=== PATIENT | female | born 1995 | race Hispanic/Latino ===

== ENCOUNTER 2018-07-05 21:04 | Emergency (ER) | payer SELFPAY ==
[2018-07-05 21:46] LABS: Urine Blood NEGATIVE (NEG); Urine Glucose NEGATIVE (NEG); Urine Protein NEGATIVE (NEG); Urine pH 6.5 (5.0-7.0)
[2018-07-05 21:46] LABS: Urine Bacteria <20 /HPF (<20); Urine Culture Reflex Order NOT NEEDED; Urine Mucus 2+ /HPF (NONE SEEN); Urine RBC <5 /HPF (NONE SEEN)
[2018-07-05 21:48] LABS: Absolute Monocytes 0.5 K/uL (0.1-1.3); Absolute Neutrophil 4.9 K/uL (1.8-8.0); Basophils % 0.3 % (0-1.3); Hematocrit 42.2 % (36.0-45.0); Lymphocytes % 26.8 % (15.3-44.8); MPV 9.1 fL (7.6-11.3); Monocytes % 6.6 % (3.3-12.3); RBC Red Blood Cell Count 4.82 M/uL (3.86-4.86)
[2018-07-05] MEDS ORDERED: NA CHLORIDE 0.9% 1,000 ML ONE (21:48)
[2018-07-05 22:02] LABS: ALT/SGPT 21 U/L (12-78); AST/SGOT 19 U/L (15-37); Albumin 4.2 g/dL (3.4-5.0); Alkaline Phosphatase 76 U/L (45-117); BUN Blood Urea Nitrogen 16 mg/dL (7-18); Bicarbonate 27 mmol/L (21-32); Bilirubin Direct 0.1 mg/dL (0-0.2); Bilirubin Total 0.5 mg/dL (0.2-1.0); Creatine Phosphokinase 124 U/L (26-192); Glucose Level 69 mg/dL (74-106); Lipase 184 U/L (73-393); Potassium 3.9 mmol/L (3.5-5.1); Protein, Total 7.8 g/dL (6.4-8.2); Sodium Level 140 mmol/L (136-145)
[2018-07-05] MEDS ORDERED: D50W 25 GM/50 ML SYRINGE IV ONE ×2 (22:32→23:53)
--- NOTE | 2018-07-06 01:38 | EDPHYS ---
Physician Documentation [facility] Name: Zofia Niño Age: 23 yrs Sex: Female : 1995 Arrival Date: 07/05/2018 Time: 21:08 Bed 17 Private MD: ED Physician Rodrigo Woods HPI: 07/06 00:06 This 23 yrs old Female presents to ER via Ambulatory with complaints of snw Shortness Of Breath. 00:06 The patient has shortness of breath while exercising, while talking. Onset: The snw symptoms/episode began/occurred suddenly, 3 day(s) ago, and became persistent. Duration: The symptoms are intermittent. The patient's shortness of breath is aggravated by exertion, talking. Severity of symptoms: At their worst the symptoms were moderate in the emergency department the symptoms are unchanged. possibly during previous pregnancies. The patient has not recently seen a physician. LMP 05/21/18, , denies complications in previous pregnancies, denies swelling in lower extremities.. 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 - Social history:: Smoking status: Patient/guardian denies using tobacco. - Ebola Screening: : No symptoms or risks identified at this time. ROS: 07/06 00:04 Eyes: Negative for injury, pain, redness, and discharge, ENT: Negative for injury, snw pain, and discharge, Neck: Negative for injury, pain, and swelling, Cardiovascular: Negative for chest pain, palpitations, and edema, Respiratory: Negative for cough, wheezing, and pleuritic chest pain, + shortness of breath Back: Negative for injury and pain, : Negative for injury, bleeding, discharge, and swelling, MS/Extremity: Negative for injury and deformity, Skin: Negative for injury, rash, and discoloration, Neuro: Negative for headache, weakness, numbness, tingling, and seizure, Psych: Negative for depression, anxiety, suicide ideation, homicidal ideation, and hallucinations. Constitutional: Positive for feeling short of breath on speaking, went to gym and was winded, began abd workout and c/o pain in lower abdomen.. Abdomen/GI: Positive for abdominal pain. Exam: 00:04 Head/Face: Normocephalic, atraumatic. Eyes: Pupils equal round and reactive to light, snw extra-ocular motions intact. Lids and lashes normal. Conjunctiva and sclera are non-icteric and not injected. Cornea within normal limits. Periorbital areas with no swelling, redness, or edema. ENT: Nares patent. No nasal discharge, no septal abnormalities noted. Tympanic membranes are normal and external auditory canals are clear. Oropharynx with no redness, swelling, or masses, exudates, or evidence of obstruction, uvula midline. Mucous membranes moist. Neck: Trachea midline, no thyromegaly or masses palpated, and no cervical lymphadenopathy. Supple, full range of motion without nuchal rigidity, or vertebral point tenderness. No Meningismus. Chest/axilla: Normal chest wall appearance and motion. Nontender with no deformity. No lesions are appreciated. 00:04 Respiratory: Lungs have equal breath sounds bilaterally, clear to auscultation and percussion. No rales, rhonchi or wheezes noted. No increased work of breathing, no retractions or nasal flaring. Abdomen/GI: Soft, non-tender, with normal bowel sounds. No distension or tympany. No guarding or rebound. No evidence of tenderness throughout. Back: No spinal tenderness. No costovertebral tenderness. Full range of motion. Skin: Warm, dry with normal turgor. Normal color with no rashes, no lesions, and no evidence of cellulitis. MS/ Extremity: Pulses equal, no cyanosis. Neurovascular intact. Full, normal range of motion. Neuro: Awake and alert, GCS 15, oriented to person, place, time, and situation. Cranial nerves II-XII grossly intact. Motor strength 5/5 in all extremities. Sensory grossly intact. Cerebellar exam normal. Normal gait. Psych: Awake, alert, with orientation to person, place and time. Behavior, mood, and affect are within normal limits. 00:04 Constitutional: The patient appears alert, awake, anxious. 00:04 Cardiovascular: Rate: tachycardic, Rhythm: regular. Vital Signs: 07/05 21:18 BP 119 / 83; Pulse 106; Resp 16; Temp 98.4; Pulse Ox 100% on R/A; Weight 64.41 kg; lp1 Height 5 ft. 3 in. (160.02 cm); Pain 4/10; 21:45 BP 116 / 76; Pulse 95; Resp 17; Pulse Ox 98% ; Pain 0/10; rr5 22:45 BP 107 / 75; Pulse 90; Resp 16; Pulse Ox 98% ; rr5 23:35 BP 104 / 70; Pulse 85; Resp 17; Pulse Ox 98% ; rr5 07/06 00:45 BP 104 / 68; Pulse 80; Resp 17; Pulse Ox 98% ; rr5 01:27 BP 101 / 64; Pulse 81; Resp 16; Pulse Ox 99% ; rr5 01:50 BP 107 / 62; Pulse 75; Resp 17; Pulse Ox 98% ; rr5 07/05 21:18 Body Mass Index 25.15 (64.41 kg, 160.02 cm) lp1 MDM: 07/05 21:58 Patient medically screened. w 07/06 00:03 Data reviewed: vital signs, nurses notes. Counseling: I had a detailed discussion with snw the patient and/or guardian regarding: the historical points, exam findings, and any diagnostic results supporting the discharge/admit diagnosis, lab results, radiology results, the need for further work-up and treatment in the hospital. Physician consultation: Pilar Shepherd MD was called at 00:03, regarding admission, [phone]. 00:40 Physician consultation: Pilar Shepherd MD was called at 00:26, regarding admission, to the [facility] telemetry unit. left message on machine [phone]. 01:10 Physician consultation: Pilar Shepherd MD was called at 01:11, regarding admission, to the [facility] telemetry unit. Message left on machine [phone]. 01:25 Special discussion: Based on the history and exam findings, there is no indication for snw further emergent testing or inpatient evaluation. I discussed with the patient/guardian the need to see the OB Gyne specialist for further evaluation of the symptoms. ED course: Encouraged pt to accept transfer to [facility] where her employment legal assistant is on staff. Pt states she is feeling better, denies shortness of breath or any pain at this time. Pt wants to go home tonight and make an appt with Dr. Aguirre for tomorrow. FSBS 111mg/dl. Attending MD notified of pt's decision.. 07/05 21:20 Order name: Basic Metabolic Panel; Complete Time: 22:07 snw 07/05 21:20 Order name: CBC with Diff; Complete Time: 21:58 snw 07/05 21:20 Order name: Hepatic Function; Complete Time: 22:07 snw 07/05 21:20 Order name: Lipase; Complete Time: 22:07 snw 07/05 21:20 Order name: CPK; Complete Time: 22:07 snw 07/05 21:20 Order name: DD; Complete Time: 21:58 snw 07/05 21:20 Order name: Urine Culture w 07/05 21:20 Order name: Urine Microscopic Only; Complete Time: 21:46 snw 07/05 21:34 Order name: Urine Dipstick--Ancillary (enter results); Complete Time: 21:46 wy07/05 21:34 Order name: Urine --Ancillary (enter results); Complete Time: 21:46 wy07/05 21:59 Order name: Quantitative Hcg; Complete Time: 23:02 snw 07/05 21:59 Order name: Abo/rh Typing; Complete Time: 23:32 snw 07/05 22:30 Order name: TRANSVAG OB EDMS 07/05 21:20 Order name: Labs collected and sent; Complete Time: 21:44 snw 07/05 21:20 Order name: Urine Test (obtain specimen); Complete Time: 21:44 w 07/05 21:20 Order name: Urine Dipstick-Ancillary (obtain specimen); Complete Time: 21:44 w 07/05 21:59 Order name: NPO; Complete Time: 22:39 snw Administered Medications: 07/05 21:40 Drug: NS 0.9% 1000 ml Route: IV; Rate: 1 bolus; Site: right antecubital; rr5 22:40 Drug: D50W 50 ml Route: IVP; Site: right antecubital; rr5 07/06 01:50 Follow up: Response: No adverse reaction rr5 07/05 23:35 Drug: D50W 50 ml Route: IVP; Site: right antecubital; rr5 07/06 01:50 Follow up: Response: No adverse reaction rr5 Point of Care Testing: Blood Glucose: 07/05 23:35 Blood Glucose: 51 mg/dL; rr5 07/06 00:45 Blood Glucose: 88 mg/dL; rr5 01:27 Blood Glucose: 111 mg/dL; rr5 07/05 23:35 ED provider aware with order made rr5 Ranges: Critical Glucose Levels:Adult <50 mg/dl or >400 mg/dl <40 mg/dl or >180 mg/dl Disposition: 07/06 03:12 Co-signature as Attending Physician, Rodrigo Woods MD. rn Disposition: 07/06/18 01:37 Patient has left against medical advice. Impression: Dyspnea, unspecified, state, Hypoglycemia, unspecified, Elevated D-dimer. - Patients states they are going to Home. - Condition is Stable. - Discharge Instructions: Hypoglycemia, Shortness of Breath, Blood Glucose Monitoring, Adult, First Trimester of . Follow up: Private Physician; When: Tomorrow; Reason: Recheck today's complaints, Continuance of care, Re-evaluation by your physician. Follow up: Emergency Department; When: As needed; Reason: Worsening of condition. - Problem is new. - Symptoms have improved. Signatures: Dispatcher [employer] [facility] Katuiska Roy, PLATER PRODUCTION-C PLATER PRODUCTION-Csnw Rodrigo Woods MD MD rn Pena, Laura, RN RN lp1 Ok Zee, RN RN rr5 Corrections: (The following items were deleted from the chart) 07/05 22:30 22:00 Transvaginal Study (Probe)+[id number].RAD.[email or web address] ordered. [facility] 07/06 01:14 00:03 Physician consultation: Pilar Shepherd MD was called at 00:03, regarding admission, snw snw 01:14 00:40 Physician consultation: Pilar Shepherd MD was called at 00:26, regarding admission, snw to the telemetry unit. left message on machine, snw 01:56 01:37 07/06/2018 01:37 Patients has left against medical advice. Impression: Dyspnea, rr5 unspecified; state; Hypoglycemia, unspecified; Elevated D-dimer. Patient states they are going to Home. Condition is Stable. Follow up: Private Physician; When: Tomorrow; Reason: Recheck today's complaints, Continuance of care, Re-evaluation by your physician. Follow up: Emergency Department; When: As needed; Reason: Worsening of condition. Problem is new. Symptoms have improved. snw
--- NOTE | 2018-07-06 01:38 | ER ---
Nurse's Notes [facility] Name: Zofia Niño Age: 23 yrs Sex: Female : 1995 Arrival Date: 07/05/2018 Time: 21:08 Bed 17 Private MD: Diagnosis: Dyspnea, unspecified; state;Hypoglycemia, unspecified;Elevated D-dimer Presentation: 07/05 21:16 Presenting complaint: Patient states: "when I was at the gym, I did regular routine, lp1 but I got real short of breath and when I was doing an ab workout, I twisted and felt something pop and it's been sore since then"; States pain on same movement; States feeling short of breath. Transition of care: patient was not received from another setting of care. Onset of symptoms was July 05, 2018 at 15:00. Risk Assessment: Do you want to hurt yourself or someone else? Patient reports no desire to harm self or others. Initial Sepsis Screen: Does the patient meet any 2 criteria? No. Patient's initial sepsis screen is negative. Does the patient have a suspected source of infection? No. Patient's initial sepsis screen is negative. Care prior to arrival: None. 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 - Social history:: Smoking status: Patient/guardian denies using tobacco. - Ebola Screening: : No symptoms or risks identified at this time. Screenin:19 Abuse screen: Denies threats or abuse. Denies injuries from another. Nutritional lp1 screening: No deficits noted. Tuberculosis screening: No symptoms or risk factors identified. Fall Risk None identified. Assessment: 21:45 General: Appears in no apparent distress. comfortable, Behavior is calm, cooperative, rr5 appropriate for age. Pain: Denies pain. Neuro: Level of Consciousness is awake, alert, obeys commands, Oriented to person, place, time, situation, Appropriate for age. Cardiovascular: Capillary refill < 3 seconds Patient's skin is warm and dry. Respiratory: Reports shortness of breath Airway is patent Respiratory effort is even, unlabored, Respiratory pattern is regular, symmetrical. GI: Abdomen is flat, Reports lower abdominal pain. : No signs and/or symptoms were reported regarding the genitourinary system. EENT: No signs and/or symptoms were reported regarding the EENT system. Derm: Skin is intact, Skin temperature is warm. Musculoskeletal: Capillary refill < 3 seconds, Range of motion: intact in all extremities. 22:50 Reassessment: Patient appears in no apparent distress at this time. Patient is alert, rr5 oriented x 3, equal unlabored respirations, skin warm/dry/pink. awaiting for results. Patient states feeling better. Patient states symptoms have improved. 23:35 Reassessment: Patient appears in no apparent distress at this time. complaints of mild rr5 dizziness and sweating. CBG rechecked 51mg/dl. Ed provider aware with order and carried out. 23:40 Reassessment: given juice and sandwich. Dextrose 50ml given as stat dose. rr5 07/06 00:30 Reassessment: Patient appears in no apparent distress at this time. Patient is alert, rr5 oriented x 3, equal unlabored respirations, skin warm/dry/pink. AMA from signed. discharge instruction given and explained without complaints made. 00:45 Reassessment: CBG 88mg/dl rechecked, given soda. rr5 01:50 Reassessment: Patient appears in no apparent distress at this time. Patient is alert, rr5 oriented x 3, equal unlabored respirations, skin warm/dry/pink. awaiting for results and review. no complaints made. Vital Signs: 07/05 21:18 BP 119 / 83; Pulse 106; Resp 16; Temp 98.4; Pulse Ox 100% on R/A; Weight 64.41 kg; lp1 Height 5 ft. 3 in. (160.02 cm); Pain 4/10; 21:45 BP 116 / 76; Pulse 95; Resp 17; Pulse Ox 98% ; Pain 0/10; rr5 22:45 BP 107 / 75; Pulse 90; Resp 16; Pulse Ox 98% ; rr5 23:35 BP 104 / 70; Pulse 85; Resp 17; Pulse Ox 98% ; rr5 07/06 00:45 BP 104 / 68; Pulse 80; Resp 17; Pulse Ox 98% ; rr5 01:27 BP 101 / 64; Pulse 81; Resp 16; Pulse Ox 99% ; rr5 01:50 BP 107 / 62; Pulse 75; Resp 17; Pulse Ox 98% ; rr5 07/05 21:18 Body Mass Index 25.15 (64.41 kg, 160.02 cm) lp1 ED Course: 07/05 21:08 Patient arrived in ED. es 21:17 Triage completed. lp1 21:18 Katiuska Roy FNP-C is PHCP. snw 21:18 Rodrigo Woods MD is Attending Physician. snw 21:18 Arm band placed on right wrist. lp1 21:35 Ok Zee RN is Primary Nurse. rr5 21:35 Inserted saline lock: 20 gauge in right antecubital area, using aseptic technique. rr5 ,using aseptic technique. by residential appliance repair technician nelly Blood collected. 21:45 Patient has correct armband on for positive identification. Bed in low position. Call rr5 light in reach. Side rails up X 1. Pulse ox on. NIBP on. 21:54 Notified Nurse Practitioner and/or Physician Professional Housing Consultant of a critical lab result(s), bb D-Dimer [id number] HUMAN RESOURCE ADVISOR notified. 22:30 TRANSVAG OB In Process Unspecified. EDMS 07/06 01:50 No provider procedures requiring assistance completed. IV discontinued, intact, rr5 bleeding controlled, No redness/swelling at site. Pressure dressing applied. Administered Medications: 07/05 21:40 Drug: NS 0.9% 1000 ml Route: IV; Rate: 1 bolus; Site: right antecubital; rr5 22:40 Drug: D50W 50 ml Route: IVP; Site: right antecubital; rr5 07/06 01:50 Follow up: Response: No adverse reaction rr5 07/05 23:35 Drug: D50W 50 ml Route: IVP; Site: right antecubital; rr5 07/06 01:50 Follow up: Response: No adverse reaction rr5 Point of Care Testing: Blood Glucose: 07/05 23:35 Blood Glucose: 51 mg/dL; rr5 07/06 00:45 Blood Glucose: 88 mg/dL; rr5 01:27 Blood Glucose: 111 mg/dL; rr5 07/05 23:35 ED provider aware with order made rr5 Ranges: Outcome: 07/06 01:50 Discharged to home ambulatory, with family. rr5 Condition: stable Discharge instructions given to patient, Instructed on discharge instructions, follow up and referral plans. Demonstrated understanding of instructions, follow-up care. 01:56 Patient left the ED. rr5 Signatures: Dispatcher [employer] EDKS Katiuska Roy, MANAGER [employer] SYSTEMS-C MANAGER QUALITY SYSTEMS-Csnw Genet Schwab Brenda, RN RN bb Maria Luisa Farrell, RN RN lp1 Ok Zee RN RN rr5
--- NOTE | 2018-07-06 08:21 | RAD REPORT ---
EXAM DESCRIPTION: US - TRANSVAG OB - 07/05/2018 10:30 pm CLINICAL HISTORY: with abdominal pain COMPARISON: None FINDINGS: The uterus measures 9 x 6 x 7 centimeters. A sac is present within the endometrium measur ing 1 x 0.5 x 0.5 centimeters. A pole is not seen. A yolk sac is not visualized. Minimal subcho rionic bleed is present Neither ovary was seen. . Right and left adnexa unremarkable. No significant free fluid IMPRESSION: These findings may indicate an early intrauterine in which the pole is n ot yet seen. Incomplete is another consideration. Less likely this represents an ectopic pre gnancy with a pseudo gestational sac. This all should be correlated clinically and with serial beta H CG levels. Followup endovaginal sonogram in 1 week recommended
== END 2018-07-06 01:56 | disposition left against medical advice (07) ==
LOC: ER 21:04
DX: O26.891 Other specified pregnancy related conditions, first trimester (principal); R06.00 Dyspnea, unspecified; E16.2 Hypoglycemia, unspecified; R74.8 Abnormal levels of other serum enzymes; Z3A.00 Weeks of gestation of pregnancy not specified; Z53.29 Procedure and treatment not carried out because of patient's decision for other reasons
CPT/HCPCS: 36415; 76813; 80048; 80076; 81003; 81015; 81025; 82550; 82962; 83690; 84702; 85025; 85379; 86900; 86901; 87086; 87088; 96374; 99284; J7030

== ENCOUNTER 2018-11-02 16:03 | Emergency (ER) | payer SELFPAY ==
--- OUTSIDE RECORDS SUMMARY | 2018-11-02 16:11 | XMS REPORT ---
:1995 [facility] Address [address] [place] [address] Dr. Spence [address] [place] [id number] Care Team Providers Name Role Phone Unavailable Unavailable Unavailable Problems This patient has no known problems. Allergies, Adverse Reactions, Alerts This patient has no known allergies or adverse reactions. Medications This patient has no known medications.
[2018-11-02 16:50] LABS: Absolute Lymphocytes (CBC) 1.8 K/uL (0.7-4.9); Basophils % 0.3 % (0-1.3); Eosinophils % 0.6 % (0-4.4); Hematocrit 40.3 % (36.0-45.0); Lymphocytes % 26.2 % (15.3-44.8); MPV 9.6 fL (7.6-11.3); Monocytes % 6.9 % (3.3-12.3); RBC Red Blood Cell Count 4.57 M/uL (3.86-4.86)
[2018-11-02 17:05] LABS: Albumin 4.1 g/dL (3.4-5.0); Bilirubin Direct 0.1 mg/dL (0-0.2); Bilirubin Total 0.5 mg/dL (0.2-1.0); Potassium 3.6 mmol/L (3.5-5.1); Protein, Total 7.6 g/dL (6.4-8.2)
[2018-11-02 17:14] LABS: Urine Blood NEGATIVE (NEG); Urine Glucose NEGATIVE (NEG); Urine Protein NEGATIVE (NEG); Urine pH 6.5 (5.0-7.0)
--- NOTE | 2018-11-02 18:52 | ER ---
Nurse's Notes [facility] Name: Zofia Niño Age: 23 yrs Sex: Female : 1995 Arrival Date: 11/02/2018 Time: 16:05 Bed 24 Private MD: Diagnosis: Abdominal and pelvic pain Presentation: 11/02 16:09 Presenting complaint: Patient states: Right flank pain intermittent for 2 days. Care aj prior to arrival: None. 16:09 Method Of Arrival: Ambulatory aj 16:09 Acuity: DEBO 3 aj 19:06 Transition of care: patient was not received from another setting of care. Onset of mg2 symptoms was November 02, 2018. Risk Assessment: Do you want to hurt yourself or someone else? Patient reports no desire to harm self or others. Initial Sepsis Screen: Does the patient meet any 2 criteria? No. Patient's initial sepsis screen is negative. Does the patient have a suspected source of infection? No. Patient's initial sepsis screen is negative. Triage Assessment: 16:09 General: Appears in no apparent distress. comfortable, Behavior is calm, cooperative, aj appropriate for age. Pain: Complains of pain in posterior aspect of right lateral abdomen and anterior aspect of right lateral abdomen. GI: Abdomen is flat. : Reports pain in right flank(s). Derm: Skin is intact, is healthy with good turgor, Skin is pink, warm \T\ dry. normal. 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 - Social history:: Smoking status: unknown. - Ebola Screening: : No symptoms or risks identified at this time. Screenin:06 Abuse screen: Denies threats or abuse. Denies injuries from another. Nutritional mg2 screening: No deficits noted. Tuberculosis screening: No symptoms or risk factors identified. Fall Risk IV access (20 points). Assessment: 19:05 General: Appears in no apparent distress. comfortable, Behavior is calm, cooperative. mg2 Pain: Complains of pain in abdomen Pain does not radiate. Pain currently is 2 out of 10 on a pain scale. Quality of pain is described as aching, Pain began gradually, Is intermittent. Neuro: Level of Consciousness is awake, alert, obeys commands, Oriented to person, place, time, situation. Cardiovascular: Capillary refill < 3 seconds. Respiratory: Airway is patent Respiratory effort is even, unlabored, Respiratory pattern is regular, symmetrical. GI: Bowel sounds present X 4 quads. Abd is soft and non tender. GI: Reports lower abdominal pain, upper abdominal pain. : No signs and/or symptoms were reported regarding the genitourinary system. EENT: No signs and/or symptoms were reported regarding the EENT system. Derm: Skin is intact, is healthy with good turgor, Skin is pink, warm \T\ dry. normal. Musculoskeletal: Circulation, motion, and sensation intact. Capillary refill < 3 seconds. 19:18 Reassessment: Patient appears in no apparent distress at this time. Patient and/or mg2 family updated on plan of care and expected duration. Pain level reassessed. Patient is alert, oriented x 3, equal unlabored respirations, skin warm/dry/pink. Vital Signs: 16:09 BP 119 / 78; Pulse 93; Resp 19; Temp 98.5; Pulse Ox 98% on R/A; Weight 64.86 kg; Height aj 5 ft. 3 in. (160.02 cm); 19:18 BP 120 / 78; Pulse 80; Resp 18; Temp 98; Pulse Ox 100% on R/A; Pain 0/10; mg2 16:09 Body Mass Index 25.33 (64.86 kg, 160.02 cm) aj ED Course: 16:05 Patient arrived in ED. as 16:09 Triage completed. aj 16:09 Arm band placed on right wrist. Patient placed in waiting room. aj 16:22 Damion Chanel MD is Attending Physician. kdr 16:34 Shayne Demarco, SARAH is Primary Nurse. mg2 16:37 Initial lab(s) drawn, by mt, sent to lab. Inserted saline lock: 20 gauge in right lt1 antecubital area, using aseptic technique. forearm, using aseptic technique. 19:07 Patient has correct armband on for positive identification. mg2 19:07 No provider procedures requiring assistance completed. IV discontinued, intact, mg2 bleeding controlled, No redness/swelling at site. Pressure dressing applied. Administered Medications: No medications were administered Outcome: 18:52 Discharge ordered by . kdr 19:19 Discharged to home ambulatory, with family. mg2 19:19 Condition: stable 19:19 Discharge instructions given to patient, family, Instructed on discharge instructions, follow up and referral plans. medication usage, Demonstrated understanding of instructions, follow-up care, medications, Prescriptions given X 3. 19:19 Patient left the ED. mg2 Signatures: Rosemary Byers, Damion Broderick RN, MD MD kdr Martinez, Amelia as Gardose, Michele, RN RN mg2 [place], [facility]
--- NOTE | 2018-11-02 18:52 | EDPHYS ---
Physician Documentation [facility] Name: Zofia Niño Age: 23 yrs Sex: Female : 1995 Arrival Date: 11/02/2018 Time: 16:05 Bed 24 Private MD: ED Physician Damion Chanel HPI: 11/02 19:04 This 23 yrs old Female presents to ER via Ambulatory with complaints of kdr Abdominal Pain. 19:04 The patient presents with abdominal pain in the epigastric area, in the lower abdomen, kdr that is diffuse. Onset: The symptoms/episode began/occurred suddenly, today, She is having intermittent abdominal pain for about two weeks. The pain comes and goes without known cause. She has not had this before and has no other associated s/s. She is o/w in good health. The symptoms do not radiate. Associated signs and symptoms: Pertinent positives: nausea, Pertinent negatives: blood in stools, chest pain, constipation, diarrhea, dysuria, fever, palpitations, shortness of breath. The symptoms are described as crampy, intermittent, vague, waxing/waning. Modifying factors: The symptoms are alleviated by nothing, the symptoms are aggravated by nothing. Severity of pain: At its worst the pain was severe incapacitating today, in the emergency department the pain has resolved. The patient has not experienced similar symptoms in the past. The patient has not recently seen a physician. 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 - Social history:: Smoking status: unknown. - Ebola Screening: : No symptoms or risks identified at this time. ROS: 19:04 Constitutional: Negative for fever, chills, and weight loss, Eyes: Negative for injury, kdr pain, redness, and discharge, ENT: Negative for injury, pain, and discharge, Neck: Negative for injury, pain, and swelling, Cardiovascular: Negative for chest pain, palpitations, and edema, Respiratory: Negative for shortness of breath, cough, wheezing, and pleuritic chest pain, Back: Negative for injury and pain, : Negative for injury, bleeding, discharge, and swelling, MS/Extremity: Negative for injury and deformity, Skin: Negative for injury, rash, and discoloration, Neuro: Negative for headache, weakness, numbness, tingling, and seizure activity. Psych: Negative for depression, anxiety, suicide ideation, homicidal ideation, and hallucinations, Allergy/Immunology: Negative for hives, rash, and allergies, Endocrine: Negative for neck swelling, polydipsia, polyuria, polyphagia, and marked weight changes, Hematologic/Lymphatic: Negative for swollen nodes, abnormal bleeding, and unusual bruising. 19:04 Abdomen/GI: Positive for abdominal pain, Negative for nausea, vomiting, and diarrhea, constipation, abdominal cramps, abdominal distension, anorexia, dysphagia, hematemesis, black/tarry stool, rectal pain, rectal bleeding, bowel incontinence. Exam: 19:04 Constitutional: This is a well developed, well nourished patient who is awake, alert, kdr and in no acute distress. Head/Face: Normocephalic, atraumatic. Eyes: Pupils equal round and reactive to light, extra-ocular motions intact. Lids and lashes normal. Conjunctiva and sclera are non-icteric and not injected. Cornea within normal limits. Periorbital areas with no swelling, redness, or edema. Neck: Trachea midline, no thyromegaly or masses palpated, and no cervical lymphadenopathy. Supple, full range of motion without nuchal rigidity, or vertebral point tenderness. No Meningismus. Chest/axilla: Normal chest wall appearance and motion. Nontender with no deformity. No lesions are appreciated. Cardiovascular: Regular rate and rhythm with a normal S1 and S2. No gallops, murmurs, or rubs. Normal PMI, no JVD. No pulse deficits. Respiratory: Lungs have equal breath sounds bilaterally, clear to auscultation and percussion. No rales, rhonchi or wheezes noted. No increased work of breathing, no retractions or nasal flaring. Abdomen/GI: Soft, non-tender, with normal bowel sounds. No distension or tympany. No guarding or rebound. No evidence of tenderness throughout. Back: No spinal tenderness. No costovertebral tenderness. Full range of motion. Skin: Warm, dry with normal turgor. Normal color with no rashes, no lesions, and no evidence of cellulitis. MS/ Extremity: Pulses equal, no cyanosis. Neurovascular intact. Full, normal range of motion. Neuro: Awake and alert, GCS 15, oriented to person, place, time, and situation. Cranial nerves II-XII grossly intact. Motor strength 5/5 in all extremities. Sensory grossly intact. Cerebellar exam normal. Normal gait. Psych: Awake, alert, with orientation to person, place and time. Behavior, mood, and affect are within normal limits. Vital Signs: 16:09 BP 119 / 78; Pulse 93; Resp 19; Temp 98.5; Pulse Ox 98% on R/A; Weight 64.86 kg; Height aj 5 ft. 3 in. (160.02 cm); 19:18 BP 120 / 78; Pulse 80; Resp 18; Temp 98; Pulse Ox 100% on R/A; Pain 0/10; mg2 16:09 Body Mass Index 25.33 (64.86 kg, 160.02 cm) aj MDM: 18:52 Patient medically screened. kdr 19:04 Data reviewed: vital signs, nurses notes, lab test result(s). Counseling: I had a kdr detailed discussion with the patient and/or guardian regarding: the historical points, exam findings, and any diagnostic results supporting the discharge/admit diagnosis, lab results, the need for outpatient follow up. 11/02 16:23 Order name: Basic Metabolic Panel; Complete Time: 17:42 kdr 11/02 16:23 Order name: CBC with Diff; Complete Time: 17:42 kdr 11/02 16:23 Order name: Creatinine for Radiology; Complete Time: 17:42 kdr 11/02 16:23 Order name: Hepatic Function; Complete Time: 17:42 kdr 11/02 16:23 Order name: Lipase; Complete Time: 17:42 kdr 11/02 17:10 Order name: Urine Dipstick--Ancillary (enter results); Complete Time: 17:42 ms 11/02 16:23 Order name: IV Saline Lock; Complete Time: 16:36 kdr 11/02 16:23 Order name: Labs collected and sent; Complete Time: 16:36 kdr 11/02 16:45 Order name: Urine Dipstick-Ancillary (obtain specimen); Complete Time: 16:45 mg2 11/02 16:45 Order name: Urine Test (obtain specimen); Complete Time: 16:45 mg2 11/02 17:10 Order name: Urine --Ancillary (enter results); Complete Time: 17:42 ms Administered Medications: No medications were administered Disposition: 11/02/18 18:52 Discharged to Home. Impression: Abdominal and pelvic pain. - Condition is Stable. - Discharge Instructions: Abdominal Pain, Adult, [id number]. - Prescriptions for Bentyl 20 mg Oral Tablet - take 1 tablet by ORAL route every 6 hours As needed; 20 tablet. Pepcid 20 mg Oral Tablet - take 1 tablet by ORAL route every 12 hours for 5 days; 10 tablet. Tramadol 50 mg Oral Tablet - take 1 tablet by ORAL route every 8 hours as needed; 12 tablet. - Medication Reconciliation Form, Thank You Letter form. - Follow up: Private Physician; When: 2 - 3 days; Reason: If symptoms return, Further diagnostic work-up, Recheck today's complaints, Continuance of care, Re-evaluation by your physician. - Problem is new. - Symptoms are resolved. Signatures: Dispatcher [employer] EDRosemary Blackburn RN RN aj Damion Chanel MD MD [facility] Shayne Demarco RN RN mg2 Corrections: (The following items were deleted from the chart) 19: 18:52 11/02/2018 18:52 Discharged to Home. Impression: Abdominal and pelvic pain. mg2 Condition is Stable. Forms are Medication Reconciliation Form, Thank You Letter, Antibiotic Education, Prescription Opioid Use. Follow up: Private Physician; When: 2 - 3 days; Reason: If symptoms return, Further diagnostic work-up, Recheck today's complaints, Continuance of care, Re-evaluation by your physician. Problem is new. Symptoms are resolved. kdr
== END 2018-11-02 19:19 | disposition home or self-care (01) ==
LOC: ER 16:03
DX: R10.2 Pelvic and perineal pain (principal); R10.13 Epigastric pain
CPT/HCPCS: 36415; 80048; 80076; 81003; 81025; 83690; 85025; 99283

== ENCOUNTER 2022-01-31 11:54 | Emergency (ER) | payer SELFPAY ==
--- OUTSIDE RECORDS SUMMARY | 2022-01-31 11:58 | XMS REPORT | Continuity of Care Document ---
:1995 Author Organization [facility] t Address [address] [id number] Care Team Providers Name Role Phone PCP, PATIENT DOES NOT HAVE A Primary Care Physician Yuri Mcclain MD Attending Clinician YURI JAMESON Attending Clinician Unavailable Doctor Unassigned, Bastian Attending Clinician Unavailable Jesse Cameron Attending Clinician YURI JAMESON Admitting Clinician Unavailable Problems Condition Condition Condition Status Onset Resolution Last Treating Co mments Source Name Details Category Date Date Treatment Clinician Date Liveborn Liveborn Disease Active 2016-05 Unive rs by infant by 0-25 ity of vaginal vaginal 00:00: [place] [facility] [place] [facility] 39 weeks Disease Active 2016-05 Unive rs gestation gestation 0-24 ity of of of 00:00: [place] 00 [facility] Urinary Urinary Disease Active 2016-05 Univers tract tract 0-03 [place] mother 00 [facility] during during Branch third third trimester trimester of of Obesity Obesity Disease Active Univers (BMI (BMI 9-26 ity of 30-39.9) 30-39.9) 00:00: [place] 00 Medical Branch 34 weeks 34 weeks Disease Active Unive rs gestation gestation 9-25 ity of of of 00:00: [place] 00 [facility] Branch Threatened Threatened Disease Active U nivers premature premature 9-25 ity of labor labor 00:00: [place] affecting affecting 00 Medi nadira , , Br anch less than less than 37 weeks, 37 weeks, antepartum antepartum Allergies, Adverse Reactions, Alerts Allergy Allergy Status Severity Reaction(s) Onset Inactive Treating Comm ents Source Name Type Date Date Clinician NO KNOWN Drug Active Rafael ALLERGIE Class ity of S [facility] Social History Social Habit Start Date Stop Date Quantity Comments Source Exposure to Not sure [facility] SARS-CoV-2 (event) Medica l Branch Sex Assigned At [facility] Medical Branch Alcohol intake 2019-11-05 2019-11-05 [facility] 00:00:00 00:00:00 Medical Branch Smoking Status Start Date Stop Date Source Never smoker [facility] Medications Ordered Filled Start Stop Current Ordering Indication Dosage Frequency Signature Comments Components Source Medication Medication Date Date Medication? Clinician (SIG) Name Name acetaminoph 2019- No 650mg 650 mg, U nivers en 11-04 Oral, ity of (TYLENOL) 07:00: 05:54 ONCE, [place] tablet 650 00 :00 dose, Sun Medi nadira mg 11/05/19 at Branch 0200, MELIDA benzonatate 2019-0 Yes [id number] 200mg Take 1 Univers 200 mg 6-21 capsule by ity of capsule 00:00: mouth 3 [place] 00 (three) Medical times Branch daily as needed for Cough. ibuprofen 2019-0 Yes [id number] 800mg Take 1 U nivers 800 mg 6-21 tablet by ity of tablet 00:00: mouth [place] 00 every 8 Medical (eight) Branch hours as needed for Pain (scale 4-6) or Temp > 38.5 C. ondansetron 2019- No 4mg 4 mg, Univ ers (ZOFRAN-ODT 206-17 Oral, ity of ) 22:30: 21:26 ONCE, 1 [place] disintegrat 00 :00 dose, Sat Med ical ing tablet 06/17/19 at Bran ch 4 mg 1630, Routine ondansetron 2019-0 Yes [id number] 4mg Take 1 Univers 4 mg 2-01 tablet by ity of disintegrat 00:00: mouth [place] ing tablet 00 every 12 Medic al (twelve) Branch hours as needed for Nausea and Vomiting (N/V). ondansetron 2019-0 Yes [id number] 4mg Take 1 Univers 4 mg 2-01 tablet by ity of disintegrat 00:00: mouth [place] ing tablet 00 every 12 Medic al (twelve) Branch hours as needed for Nausea and Vomiting (N/V). ondansetron Yes [id number] 4mg Take 1 Univers 4 mg 2-01 tablet by ity of disintegrat 00:00: mouth [place] ing tablet 00 every 12 Medic al (twelve) Branch hours as needed for Nausea and Vomiting (N/V). traMADol 2018-05 Yes [id number] 50mg Take 1 Un [place] (ULTRAM) 50 2-12 tablet by ity of mg tablet 00:00: mouth [place] 00 every 8 Medical (eight) Branch hours as needed for Pain (scale 4-6). cyclobenzap 2018-05 Yes [id number] 5mg Take 1 Univers rine 5 mg 2-12 tablet by ity o f tablet 00:00: mouth 3 [place] 00 (three) Medical times Branch daily. traMADol 2018-05 Yes [id number] 50mg Take 1 Un [place] (ULTRAM) 50 2-12 tablet by ity of mg tablet 00:00: mouth [place] 00 every 8 Medical (eight) Branch hours as needed for Pain (scale 4-6). cyclobenzap 2018-05 Yes [id number] 5mg Take 1 Univers rine 5 mg 2-12 tablet by ity o f tablet 00:00: mouth 3 [place] 00 (three) Medical times Branch daily. traMADol 2018-05 Yes [id number] 50mg Take 1 Un [place] (ULTRAM) 50 2-12 tablet by ity of mg tablet 00:00: mouth [place] 00 every 8 Medical (eight) Branch hours as needed for Pain (scale 4-6). cyclobenzap 2018-05 Yes [id number] 5mg Take 1 Univers rine 5 mg 2-12 tablet by ity o f tablet 00:00: mouth 3 [place] 00 (three) Medical times Branch daily. traMADol 2018-05 Yes [id number] 50mg Take 1 Un [place] (ULTRAM) 50 2-12 tablet by ity of mg tablet 00:00: mouth [place] 00 every 8 Medical (eight) Branch hours as needed for Pain (scale 4-6). cyclobenzap 2018-05 Yes [id number] 5mg Take 1 Univers rine 5 mg 2-12 tablet by ity o f tablet 00:00: mouth 3 [place] 00 (three) Medical times Branch daily. Vital Signs Vital Name Observation Time Observation Value Comments Source Systolic blood 2019-11-05 07:00:00 118 mm[Hg] Univer sity of pressure [facility] Diastolic blood 2019-11-05 07:00:00 83 mm[Hg] Unive rsity of [facility] Heart rate 2019-11-05 07:00:00 75 /min Universi ty of [facility] Respiratory rate 2019-11-05 07:00:00 16 /min [facility] in 2019-11-05 07:00:00 98 /min [place] of Arterial blood by [facility] Pulse oximetry Branch Body temperature 2019-11-05 06:35:44 37.22 [facility]ira [facility] Body height 2019-11-05 05:48:00 160 cm Universi [facility] Body weight 2019-11-05 05:48:00 62.596 kg [facility] BMI 2019-11-05 05:48:00 24.45 kg/m2 [facility] Systolic blood 2019-06-17 22:00:00 121 mm[Hg] Univer sity of [facility] Diastolic blood 2019-06-17 22:00:00 82 mm[Hg] Unive rsity of [facility] Heart rate 2019-06-17 22:00:00 85 /min Universi ty [facility] Body temperature 2019-06-17 22:00:00 36.83 Amira [facility] Respiratory rate 2019-06-17 22:00:00 17 /min [facility] Oxygen saturation in 2019-06-17 22:00:00 99 /min University of Arterial blood by [facility] Pulse oximetry Branch Body weight 2019-06-17 21:01:00 63.957 kg Universi [facility] BMI 2019-06-17 21:01:00 24.98 kg/m2 [facility] Procedures Procedure Date / Time Performed Performing Clinician Nayeli e COVID-19 (ID NOW RAPID 2019-11-05 06:40:00 Yuri Jameson [facility] TESTING) Medical Branch XR CHEST 1 VW COVID 2019-11-05 06:30:35 Yuri Jameson [facility] URINALYSIS 2019-11-05 05:55:00 Yuri Jameson [facility] RAPID STREP SCREEN FOR 2019-11-05 05:55:00 Yuri Jameson [facility] GROUP A Medical Branch POCT TEST 2019-11-05 05:52:00 Yuri Jameson [facility] NOTICE OF PRIVACY 2019-11-05 05:37:46 Doctor Unassigned, No [facility] Branch CONSENT/REFUSAL FOR 2019-11-05 05:37:34 Doctor Unassigned, No Un iversity of [place] DIAGNOSIS AND Name Medical Branch TREATMENT URINALYSIS 2019-06-17 21:21:00 Jesse Fuller [facility] POCT TEST 2019-06-17 21:15:00 Jesse Fuller [facility] NOTICE OF PRIVACY 2019-06-17 20:55:08 Doctor Unassigned, No [facility] [place] CONSENT/REFUSAL FOR 2019-06-17 20:54:53 Doctor Unassigned, No Un iversity of [place] DIAGNOSIS AND Name Medical Branch TREATMENT Encounters Start End Encounter Admission Attending Care Care Encounter Source Date/Time Date/Time Type Type Clinicians Facility Department ID 2019-11-05 2019-11-05 Emergency [facility] [id number] Univers 00:40:05 02:53:00 Yuri Colon [id number] ity of [place] [id number] [facility] [id number] [facility] 084 Branch 2019-11-05 2019-11-05 Emergency X [facility] ERT [id number] Univers 00:40:05 02:53:00 YURI [facility] 2019-11-05 2019-11-05 Orders Doctor LUX [id number] Univers 00:00:00 00:00:00 Only Unassigned, LORA [id number] [facility] [id number] [facility] [place] [facility] [id number] [facility] 009 Branch 2019-06-17 2019-06-17 Emergency [place], [facility] [id number] Univers 14:59:54 16:37:00 Jesse Colon [id number] i ty of [place] [id number] [facility] [id number] [facility] 084 Branch 2019-06-17 2019-06-17 Orders Doctor MACI [id number] Univers 00:00:00 00:00:00 Only Unassigned, LORA [id number] ity of [place] [facility] [id number] Michael [id number] [facility] 009 [place] Results Test Description Test Time Test Comments Results Result Comments Source COVID-19 (ID NOW RAPID TESTING) 2019-11-05 07:11:00 Test Item Value Reference Range Interpretation Comme nts SARS-CoV-2 Rapid ID NOW (test code Not Detected Not Detected = 74142-1) LUIZ (test code = LUIZ) ID NOW COVID-19 Assay is an isothermal nucleic acid amplification test intended for the qualitative detection of nucleic acid from SARS-CoV-2 viral RNA in nasopharyngeal (APPRAISER TIMBER) specimens. It is used under Emergency Use Authorization (EUA) by FDA. The limit of detection (LOD) of the assay is 125 Genome Equivalents/mL. A positive result is indicative of the presence of SARS-CoV-2 RNA. ?Clinical correlation with patient history and other diagnostic information is necessary to determine patient infection status. A negative (Not Detected) result does not preclude SARS-CoV-2 infection. In patients with clinical symptoms and other tests that are consistent with SARS-CoV-2 infection, negative results should be treated as presumptive negative and a new specimen should be tested with alternative PCR molecular test. Invalid: Please collect a new specimen for repeat patient testing if clinically indicated. Lab Interpretation (test code = Normal 10775-7) [facility] 06[facility]00 Test Item Value Reference Range Interpretation Comments APPEARANCE (test code = Clear Clear 6611641692) COLOR (test code = Yellow Yellow 7970100940) PH (test code = 4.8-8.0 4114311250) SP GRAVITY (test code = 1.003-1.030 8565812954) GLU U QUAL (test code = Normal Normal 4864603220) BLOOD (test code = 3+ Negative A 8431859850) KETONES (test code = Negative Negative 1359330937) PROTEIN (test code = Negative Negative 2887-8) UROBILIN (test code = Normal Normal 5212330385) BILIRUBIN (test code = Negative Negative 3047849834) NITRITE (test code = Negative Negative 5222947592) LEUK CAROLINE (test code = Negative Negative 8434628712) RBC/HPF (test code = See_Comment [Autom ated message] 1623165030) The system [employer] generated this result transmitted ref erence range: 0 - 3 HP F. The reference range was not used to int erpret this result as normal/abnormal . WBC/HPF (test code = See_Comment [Autom ated message] 9952474950) The system [employer] generated this result transmitted ref erence range: 0 - 5 HP F. The reference range was not used to int erpret this result as normal/abnormal . BACTERIA (test code = Few Negative A 6660862270) MUCOUS (test code = Slight Negative LPF A 7983452813) SQ EPITH (test code = HPF 0782390947) Lab Interpretation (test Abnormal code = 85270-0) [facility] STREP SCREEN FOR GROUP [id number] 06:25:00 Test Item Value Reference Range Interpretation Comments Streptococcus pyogenes (group A) Negative Negative antigen (test code = 53449-0) Lab Interpretation (test code = Normal 31535-2) [facility] [id number] 05:52:00 Test Item Value Reference Range Interpretation Comments POCT PREG (test code = 1605) Negative On board controls acceptable with Present C Line (test code = 3574) POCT PREG LOT # (test code = 3575) [id number] POCT PREG TEST DATE (test 02/13/2021 code = 3576) Lab Interpretation (test code = Normal 58391-4) [facility] 21:41:00 Test Item Value Reference Range Interpretation Comments APPEARANCE (test code = Hazy Clear A 5349594009) COLOR (test code = Yellow Yellow 8784588079) PH (test code = 4.8-8.0 8113714310) SP GRAVITY (test code = 1.003-1.030 0188586680) GLU U QUAL (test code = Normal Normal 6051777010) BLOOD (test code = Negative Negative INTERFERE NCE FROM 7645472483) ASCORBIC ACID M AY CAUSE FALSE NEG ATIVE RESULT KETONES (test code = Negative Negative 3612148955) PROTEIN (test code = Negative Negative 2887-8) UROBILIN (test code = 2.0 mg/dL Normal A 4824973097) BILIRUBIN (test code = Negative Negative 0136886306) NITRITE (test code = Negative Negative 1372067424) LEUK CAROLINE (test code = Negative Negative 4473965252) RBC/HPF (test code = See_Comment [Autom ated message] 2617524341) The system [employer] generated this result transmitted ref erence range: 0 - 3 HP F. The reference range was not used to int erpret this result as normal/abnormal . WBC/HPF (test code = See_Comment [Autom ated message] 0465012123) The system [employer] generated this result transmitted ref erence range: 0 - 5 HP F. The reference range was not used to int erpret this result as normal/abnormal . BACTERIA (test code = Few Negative A 3988288023) MUCOUS (test code = Slight Negative LPF A 7223208948) SQ EPITH (test code = HPF 9771172719) Lab Interpretation Abnormal (test code = 00627-5) [facility], [id number] 21:15:00 Test Item Value Reference Range Interpretation Comments POCT PREG (test code = 1605) negative POCT PREG LOT # (test code = 3575) [id number] POCT PREG TEST DATE (test 12/14/2020 code = 3576) Lab Interpretation (test code = Normal 22227-3) [facility]
--- NOTE | 2022-01-31 13:17 | RAD REPORT ---
EXAM DESCRIPTION: Gonzaloanu Angio01/31/2022 1:03 pm CLINICAL HISTORY: Neck pain status post strangulation COMPARISON: None TECHNIQUE: 50 cc Isovue 370 was administered intravenously. 3D MIP reconstruction performed All CT scans are performed using dose optimization technique as appropriate and may include automated exposure control or mA/KV adjustment according to patient size. FINDINGS: The common carotid, internal carotid and external carotid arteries bilaterally are normal caliber. The vertebral arteries are codominant. No dissection seen. No plaque noted Bovine aorta IMPRESSION: Unremarkable exam NASCET criteria used. Mild 0-49% stenosis Moderate 50-69% stenosis Severe 70-99% stenosis
[2022-01-31] MEDS ORDERED: KETOROLAC 30 MG/ML INJ ONE (14:15)
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
[2022-02-02 00:26] VITALS: TEMP 98.3; O2SAT 100
[2022-02-02 00:37] VITALS: BP 110/68
== END 2022-01-31 15:25 | disposition home or self-care (01) ==
LOC: ER 11:54
DX: S16.1XXA Strain of muscle, fascia and tendon at neck level, initial encounter (principal)
CPT/HCPCS: 70498; 96374; 99284; Q9967

== ENCOUNTER 2024-07-04 17:31 | Emergency (ER) | payer SELFPAY ==
--- OUTSIDE RECORDS SUMMARY | 2024-07-04 17:34 | XMS REPORT | Clinical Summary ---
Author Name Unknown Organization [facility] Address [facility] [place] [address] Care Team Providers Care Solder Technician Name Role Phone Unavailable Primary Care Provider Unavailabl e Encounters Date Type Department Care Team Description 10/05/2023 Documentation [facility] [address] [facility] [address], [address]th [place] [address] Mary Fournier MD after 07/05/2023 Social History Tobacco Use Types Packs/Day Years Used Date Smoking Tobacco: Never Assessed Comments Unknown Sex and Gender Information Value Date Recorded Sex Assigned at Not on file Legal Sex Female 4:12 PM CDT Gender Identity Not on file Sexual Orientation Not on file Plan of Treatment Not on file
[2024-07-04 19:23] LABS: Specific Gravity > 1.030 (1.005-1.030); Urine Bacteria <20 /HPF (<20); Urine Bilirubin NEGATIVE (Negative); Urine Blood 3+ (OVER) (Negative); Urine Clarity Extremely Turbid (Clear); Urine Color Orange (Yellow); Urine Culture Reflex Order REFLEXED; Urine Glucose NEGATIVE (Negative); Urine Ketones 1+ (Negative); Urine Microscopic Reflex YN ORDER UMIC; Urine Mucus 2+ /HPF (None Seen); Urine Nitrite NEGATIVE (Negative); Urine Protein 2+ (Negative); Urine RBC >50 /HPF (None Seen); Urine Urobilinogen Normal (Normal); Urine WBC >50 /HPF (<5)
[2024-07-04 19:25] LABS: Specific Gravity > 1.030 (1.005-1.030)
--- NOTE | 2024-07-04 20:12 | EDPHYS ---
Physician Documentation [facility] Name: Zofia Niño Age: 29 yrs Sex: Female : 1995 Arrival Date: 07/04/2024 Time: 17:31 Bed 7 Private MD: ED Physician Tien Short HPI: 07/04 18:35 This 29 yrs old Female presents to ER via Unassigned with complaints of abd kb pain. 18:35 Patient is a 29-year-old female who presents for suprapubic pain/pressure that started kb last night. Denies nausea, vomiting, diarrhea, urinary symptoms, fever. States she had the same pain on June 04 and was seen at another ER, all test negative, was prescribed ibuprofen 800 mg. States the pain resolved the next day, but came back again last night. States she did have an in March and has not had a period since then so she does not know if that has any correlation with the symptoms.. 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 - Infectious Disease History:: Denies. - Social history:: Smoking status: Patient denies any tobacco usage or history of. ROS: 18:35 Constitutional: As per HPI kb Exam: 18:35 Constitutional: This is a well developed, well nourished patient who is awake, alert, kb and in no acute distress. Head/Face: Normocephalic, atraumatic. ENT: Moist Mucous membranes Cardiovascular: Regular rate Respiratory: Respirations even and unlabored. No increased work of breathing. Talking in full sentences Skin: Warm, dry with normal turgor. Normal color. MS/ Extremity: Pulses equal, no cyanosis. Neurovascular intact. Full, normal range of motion. Neuro: Awake and alert, GCS 15, oriented to person, place, time, and situation. 18:35 Abdomen/GI: Inspection: abdomen appears normal, Bowel sounds: normal, Palpation: soft, in all quadrants, mild abdominal tenderness, in the suprapubic area, Vital Signs: 18:15 BP 128 / 82; Pulse 95; Resp 18; Temp 97.6; Pulse Ox 100% on R/A; Weight 63.5 kg; Height ph 5 ft. 4 in. ; Pain 3/10; 20:16 BP 121 / 72; Pulse 82; Resp 20 S; Temp 98.8; Pulse Ox 99% on R/A; aa10 18:15 Body Mass Index 24.03 (63.50 kg, 162.56 cm) ph 18:15 Pain Scale: Adult ph MDM: 18:30 Medical Screening Exam initiated kb 18:36 Data reviewed: vital signs, nurses notes. kb 20:12 Differential diagnosis: non-specific abd pain, urinary tract infection. Counseling: I kb had a detailed discussion with the patient and/or guardian regarding the historical points, exam findings, and any diagnostic results supporting the discharge/admit diagnosis, lab results, the need for outpatient follow up, a family practitioner, to return to the emergency department if symptoms worsen or persist or if there are any questions or concerns that arise at home. 07/04 18:26 Order name: Test, Urine; Complete Time: 19:25 EDMS 07/04 18:26 Order name: Urinalysis w/ reflexes; Complete Time: 19:33 EDMS 07/04 19:28 Order name: Urine Culture EDMS Administered Medications: No medications were administered Disposition Summary: 07/04/24 20:12 Discharge Ordered Notes: Location: Home kb Condition: Stable kb Diagnosis - UTI/ Urinary tract infection, site not specified kb Discharge Instructions: - Discharge Summary Sheet kb - Urinary Tract Infection, Adult, [id number] kb Forms: - Medication Reconciliation Form kb - Antibiotic Education kb - Prescription Opioid Use kb - Patient Portal Instructions kb - Leadership Thank You Letter kb Prescriptions: - Augmentin 875-125 mg Oral Tablet - take 1 tablet ORAL route every 12 hours for 10 days; 20 tablet; Refills: 0, kb Product Selection Permitted Signatures: Dispatcher [employer] EDMS Belkis Garay FNP-C FNP-Sallie Zapien, RN RN ph
--- NOTE | 2024-07-04 20:12 | ER ---
Nurse's Notes [facility] Name: Zofia Niño Age: 29 yrs Sex: Female : 1995 Arrival Date: 07/04/2024 Time: 17:31 Bed 7 Private MD: Diagnosis: UTI/ Urinary tract infection, site not specified Presentation: 07/04 18:15 Chief complaint: Patient states: Suprapubic pain that radiates and brown vaginal ph discharge that started last night. Coronavirus screen: Vaccine status: Patient reports being unvaccinated. Ebola Screen: No symptoms or risks identified at this time. Initial Sepsis Screen: Does the patient meet any 2 criteria? No. Patient's initial sepsis screen is negative. Does the patient have a suspected source of infection? No. Patient's initial sepsis screen is negative. Risk Assessment: Do you want to hurt yourself or someone else? Patient reports no desire to harm self or others. Onset of symptoms was July 04, 2024. 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 - Infectious Disease History:: Denies. - Social history:: Smoking status: Patient denies any tobacco usage or history of. Screenin:45 [facility] ED Fall Risk Assessment (Adult) History of falling in the last 3 months, ph including since admission No falls in past 3 months (0 pts) Confusion or Disorientation No (0 pts) Intoxicated or Sedated No (0 pts) Impaired Gait No (0 pts) Mobility Assist Device Used No (0 pt) Altered Elimination No (0 pt) Score/Fall Risk Level 0 - 2 = Low Risk Oriented to surroundings, Maintained a safe environment, Hourly rounding (assess needs \T\ fall precautionary measures) done. Abuse screen: Denies threats or abuse. Denies injuries from another. Nutritional screening: No deficits noted. Tuberculosis screening: No symptoms or risk factors identified. Assessment: 19:02 General: Appears in no apparent distress. uncomfortable, slender, well groomed, ph Behavior is calm, cooperative, appropriate for age, Denies fever. Pain: Complains of pain in suprapubic area. Neuro: Level of Consciousness is awake, alert, obeys commands, Oriented to person, place, time, situation. Cardiovascular: Capillary refill < 3 seconds in bilateral fingers Patient's skin is warm and dry. Respiratory: Airway is patent Respiratory effort is even, unlabored. : Reports cramping, vaginal bleeding that is brown. Derm: Skin is pink, warm \T\ dry. Musculoskeletal: Circulation, motion, and sensation intact. Range of motion: intact in all extremities. 20:16 Reassessment: Patient appears in no apparent distress at this time. No changes from aa10 previously documented assessment. Patient and/or family updated on plan of care and expected duration. Pain level reassessed. Patient is alert, oriented x 3, equal unlabored respirations, skin warm/dry/pink. Patient states feeling better. Patient states symptoms have improved. Vital Signs: 18:15 BP 128 / 82; Pulse 95; Resp 18; Temp 97.6; Pulse Ox 100% on R/A; Weight 63.5 kg; Height ph 5 ft. 4 in. ; Pain 3/10; 20:16 BP 121 / 72; Pulse 82; Resp 20 S; Temp 98.8; Pulse Ox 99% on R/A; aa10 18:15 Body Mass Index 24.03 (63.50 kg, 162.56 cm) ph 18:15 Pain Scale: Adult ph ED Course: 18:25 Patient arrived in ED. kb3 18:27 Belkis Garay FNP-C is [facility]. kb 18:27 Tien Short MD is Attending Physician. kb 18:43 Sallie Lyman, SARAH is Primary Nurse. ph 18:45 Triage completed. ph 18:45 Arm band placed on Patient placed in an exam room, on a stretcher. ph 18:46 Patient has correct armband on for positive identification. Bed in low position. Call ph light in reach. Side rails up X 1. Pulse ox on. NIBP on. 19:03 Urine collected: clean catch specimen, blood tinged. ph 19:04 Test, Urine Sent. ph 19:04 Urinalysis w/ reflexes Sent. ph 20:27 No provider procedures requiring assistance completed. Patient did not have IV access aa10 during this emergency room visit. 20:28 Provided Education on: plan of care. aa10 Administered Medications: No medications were administered Medication: 18:46 VIS not applicable for this client. ph Outcome: 20:12 Discharge ordered by MD. lopez 20:27 Discharged to aa10 20:27 Discharged to home ambulatory, 20:27 Condition: good 20:27 Discharge instructions given to patient, Instructed on discharge instructions, Prescriptions given X 1, 20:29 Patient left the ED. aa10 Signatures: Belkis Garay, SHAYLEEC SCOTT-Sallie Zapien RN RN Edita Coe, SARAH RN kb3 Nathalie Harmon, RN RN aa10
[2024-07-05 00:37] VITALS: BP 121/72; TEMP 98.8; O2SAT 99
== END 2024-07-04 20:29 | disposition home or self-care (01) ==
LOC: ER 17:31
DX: N39.0 Urinary tract infection, site not specified (principal)
CPT/HCPCS: 81001; 81025; 87086; 87088